=== PATIENT | female | born 1990 | race Caucasian/White ===

== ENCOUNTER 2019-04-25 18:44 | Emergency (ER) | payer SELFPAY ==
--- NOTE | 2019-04-25 20:30 | ER ---
Nurse's Notes [facility] Name: Moises High Age: 28 yrs Sex: Female : 1990 Arrival Date: 04/25/2019 Time: 18:49 Bed 12 Private MD: Diagnosis: Other internal derangements of knee Presentation: 04/25 18:59 Presenting complaint: Patient states: HYPEREXTENDED R KNEE ON 04/20. Transition of care: bp patient was not received from another setting of care. Onset of symptoms was April 20, 2019. Risk Assessment: Do you want to hurt yourself or someone else? Patient reports no desire to harm self or others. Initial Sepsis Screen: Does the patient meet any 2 criteria? No. Patient's initial sepsis screen is negative. Does the patient have a suspected source of infection? No. Patient's initial sepsis screen is negative. Care prior to arrival: None. 18:59 Method Of Arrival: Ambulatory bp 18:59 Acuity: YOLY 3 bp Triage Assessment: 19:37 General: Appears in no apparent distress. Behavior is calm, cooperative. 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 - Social history:: Smoking status: Patient/guardian denies using tobacco. - Ebola Screening: : No symptoms or risks identified at this time. Screenin:37 Abuse screen: Denies threats or abuse. Denies injuries from another. Nutritional ak1 screening: No deficits noted. Tuberculosis screening: No symptoms or risk factors identified. Fall Risk None identified. Assessment: 20:38 Reassessment: Patient appears in no apparent distress at this time. Patient and/or ak1 family updated on plan of care and expected duration. Pain level reassessed. Patient is alert, oriented x 3, equal unlabored respirations, skin warm/dry/pink. General: Appears in no apparent distress. Pain: Complains of pain in knee. Neuro: No deficits noted. Cardiovascular: No deficits noted. Respiratory: No deficits noted. GI: No signs and/or symptoms were reported involving the gastrointestinal system. : No signs and/or symptoms were reported regarding the genitourinary system. EENT: No signs and/or symptoms were reported regarding the EENT system. Derm: Reports pain since pain in right knee since 04/20/19. Musculoskeletal: Reports pt with brace to right knee 04/20/19, pt with limping gait due to pain. Vital Signs: 19:01 BP 129 / 76; Pulse 93; Resp 18; Temp 97.4; Pulse Ox 97% ; Weight 133.81 kg; Height 5 bp ft. 4 in. (162.56 cm); 19:01 Body Mass Index 50.64 (133.81 kg, 162.56 cm) bp ED Course: 18:49 Patient arrived in ED. mr 19:00 Triage completed. bp 19:01 Arm band placed on left wrist. bp 19:37 Patient has correct armband on for positive identification. ak1 19:56 Vineet Sanchez MD is Attending Physician. gs 20:14 Lucille Dale RN is Primary Nurse. ak1 20:28 Ulises Garcia MD is Referral Physician. gs 20:38 No provider procedures requiring assistance completed. Patient did not have IV access ak1 during this emergency room visit. Administered Medications: No medications were administered Outcome: 20:29 Discharge ordered by . gs 20:38 Instructed on ak1 20:52 Discharged to home ambulatory, with family. ak1 20:52 Condition: good 20:52 Patient left the ED. ak1 Signatures: Corrina Santoyo Lucille Dale, RN RN ak1 Vineet Sanchez MD MD gs Peltier, Brian, RN RN bp
--- NOTE | 2019-04-25 20:30 | EDPHYS ---
Physician Documentation [facility] Name: Moises High Age: 28 yrs Sex: Female : 1990 Arrival Date: 04/25/2019 Time: 18:49 Bed 12 Private MD: ED Physician Vineet Sanchez HPI: 04/25 21:26 This 28 yrs old Female presents to ER via Ambulatory with complaints of Knee gs Pain. 21:26 The complaints affect the right knee. Onset: The symptoms/episode began/occurred 1 gs week(s) ago. Modifying factors: the symptoms are aggravated by weight bearing, bending knee. Associated signs and symptoms: Pertinent negatives numbness. Severity of symptoms: At their worst the symptoms were moderate, in the emergency department the symptoms are unchanged. The patient has not experienced similar symptoms in the past. The patient has not recently seen a physician. 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 - Social history:: Smoking status: Patient/guardian denies using tobacco. - Ebola Screening: : No symptoms or risks identified at this time. ROS: 21:26 All other systems are negative. gs Exam: 21:26 Eyes: Pupils equal round and reactive to light, extra-ocular motions intact. Lids and gs lashes normal. Conjunctiva and sclera are non-icteric and not injected. Cornea within normal limits. Periorbital areas with no swelling, redness, or edema. Neck: Trachea midline, no thyromegaly or masses palpated, and no cervical lymphadenopathy. Supple, full range of motion without nuchal rigidity, or vertebral point tenderness. No Meningismus. Cardiovascular: Regular rate and rhythm with a normal S1 and S2. No gallops, murmurs, or rubs. Normal PMI, no JVD. No pulse deficits. Abdomen/GI: Soft, non-tender, with normal bowel sounds. No distension or tympany. No guarding or rebound. No evidence of tenderness throughout. Skin: Warm, dry with normal turgor. Normal color with no rashes, no lesions, and no evidence of cellulitis. Neuro: Awake and alert, GCS 15, oriented to person, place, time, and situation. Cranial nerves II-XII grossly intact. Motor strength 5/5 in all extremities. Sensory grossly intact. Cerebellar exam normal. Normal gait. 21:26 Constitutional: The patient appears alert, awake. 21:26 Musculoskeletal/extremity: ROM: limited active range of motion due to pain, limited passive range of motion due to pain, Pulses: are normal with no appreciated deficits, Sensation intact. Joints: effusion, ABSENT. Vital Signs: 19:01 BP 129 / 76; Pulse 93; Resp 18; Temp 97.4; Pulse Ox 97% ; Weight 133.81 kg; Height 5 bp ft. 4 in. (162.56 cm); 19:01 Body Mass Index 50.64 (133.81 kg, 162.56 cm) bp MDM: 20:14 Patient medically screened. 21:26 Data reviewed: vital signs, nurses notes. Counseling: I had a detailed discussion with the patient and/or guardian regarding: the need for outpatient follow up, a orthopedic surgeon. Administered Medications: No medications were administered Disposition: 04/25/19 20:29 Discharged to Home. Impression: Other internal derangements of knee. - Condition is Stable. - Discharge Instructions: Combined Knee Ligament Sprain. - Work release form, Medication Reconciliation Form, Thank You Letter, Antibiotic Education, Prescription Opioid Use form. - Follow up: Ulises Garcia MD; When: 2 - 3 days; Reason: Re-evaluation by your physician. Signatures: Lucille Dale RN RN ak1 Vineet Sanchez MD MD Antonio Gamboa RN RN bp Corrections: (The following items were deleted from the chart) 20:52 20:29 04/25/2019 20:29 Discharged to Home. Impression: Other internal derangements of ak1 knee. Condition is Stable. Forms are Medication Reconciliation Form, Thank You Letter, Antibiotic Education, Prescription Opioid Use. Follow up: Ulises Garcia; When: 2 - 3 days; Reason: Re-evaluation by your physician.
== END 2019-04-25 20:52 | disposition home or self-care (01) ==
LOC: ER 18:44
DX: M23.8X1 Other internal derangements of right knee (principal)
CPT/HCPCS: 99281

== ENCOUNTER 2019-09-02 19:09 | Emergency (ER) | payer SELFPAY ==
--- OUTSIDE RECORDS SUMMARY | 2019-09-02 19:12 | XMS REPORT ---
:1990 Author Organization [facility] Address [address] [place] [address] Dr. Barger [address] [place] [id number] Care Team Providers Name Role Phone Unavailable Unavailable Unavailable Problems This patient has no known problems. Allergies, Adverse Reactions, Alerts This patient has no known allergies or adverse reactions. Medications This patient has no known medications.
[2019-09-02] MEDS ORDERED: LEVALBUTEROL 1.25 MG/3 ML NEB ONE (19:34)
[2019-09-02] MEDS ORDERED: METHYLPREDNISOLONE 125 MG INJ ONE (19:34)
[2019-09-02] MEDS ORDERED: HYDROCODONE/CHLORPHEN 5 ML/OSYR ONE (19:35)
--- NOTE | 2019-09-02 20:02 | RAD REPORT ---
EXAM DESCRIPTION: RAD - Chest Pa And Lat (2 Views) - 09/02/2019 7:49 pm CLINICAL HISTORY: COUGH Chest pain. COMPARISON: <Comparisons> FINDINGS: Mild interstitial prominence is seen which may represent bronchitis or reactive airway dis ease. No focal consolidation typical of pneumonia evident. The heart is normal in size. No displaced fractures.
--- NOTE | 2019-09-02 20:16 | EDPHYS ---
Physician Documentation [facility] Name: Moises High Age: 29 yrs Sex: Female : 1990 Arrival Date: 09/02/2019 Time: 19:14 Bed 20 Private MD: ED Physician Teddy Mcgrath HPI: 09/02 19:28 This 29 yrs old Female presents to ER via Ambulatory with complaints of rn Wheezing < 1 Year, Cough, Fever, Nasal Congestion, Eye Problem, Ear Pain. 19:28 The patient or guardian reports cough, described as moderate, with productive sputum. rn Onset: The symptoms/episode began/occurred 1.5 week(s) ago. Severity of symptoms: At their worst the symptoms were moderate, in the emergency department the symptoms are unchanged. Modifying factors: The symptoms are alleviated by nothing, the symptoms are aggravated by nothing. Associated signs and symptoms: Pertinent positives: rhinorrhea, sore throat, Pertinent negatives: diarrhea, fever. The patient has experienced similar episodes in the past. Reports 1.5 weeks of cough, congestion, not getting better despite amoxicilin, cough medication, allergy meds. + asthma. NO hemoptysis. . 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 - Social history:: Smoking status: Patient uses tobacco products, 4-5 cigarettes per day. - Ebola Screening: : Patient denies travel to an Ebola-affected area in the 21 days before illness onset. - Family history:: not pertinent. - Hospitalizations: : No recent hospitalization is reported. ROS: 19:28 Constitutional: Negative for fever, chills, and weight loss, Eyes: Negative for injury, rn pain, redness, and discharge, ENT: + nasal congestion and sore throat Neck: Negative for injury, pain, and swelling, Cardiovascular: Negative for chest pain, palpitations, and edema, Respiratory: + sob and cough Abdomen/GI: Negative for abdominal pain, nausea, vomiting, diarrhea, and constipation, MS/Extremity: Negative for injury and deformity, Skin: Negative for injury, rash, and discoloration, Neuro: Negative for numbness, tingling, and seizure. Exam: 19:28 Constitutional: This is a well developed, well nourished patient who is awake, alert, rn + persistent cough Head/Face: Normocephalic, atraumatic. Eyes: Pupils equal round and reactive to light, extra-ocular motions intact. Lids and lashes normal. Conjunctiva and sclera are non-icteric and not injected. Cornea within normal limits. Periorbital areas with no swelling, redness, or edema. ENT: MMM, no oral swelling, no stridor, uvula midline Neck: Trachea midline, no crepitus, + non-tender cervical LAD Cardiovascular: Regular rate and rhythm. No pulse deficits. Respiratory: + mild tachypnea with coarse bilateral breath sounds, + faint wheezing bilaterally. Abdomen/GI: soft, non-tender Skin: Warm, dry with normal turgor. Normal color with no rashes, no lesions, and no evidence of cellulitis. MS/ Extremity: Pulses equal, no cyanosis. Neurovascular intact. Full, normal range of motion. Equal circumference. Neuro: Awake and alert, GCS 15 Vital Signs: 19:18 BP 137 / 94; Pulse 93; Resp 20; Temp 98.7; Pulse Ox 100% on R/A; Weight 133.81 kg (R); aj1 Height 5 ft. 4 in. (162.56 cm) (R); Pain 8/10; 20:30 BP 107 / 68; Pulse 89; Resp 19 S; Pulse Ox 100% on R/A; cc3 19:18 Body Mass Index 50.64 (133.81 kg, 162.56 cm) aj1 MDM: 19:20 Patient medically screened. rn 20:14 Differential Diagnosis: Bronchitis Influenza Upper Respiratory Infection Sinusitis rn Pharyngitis Viral Syndrome Pneumonia. Data reviewed: vital signs, nurses notes, lab test result(s), radiologic studies, plain films, and as a result, I will discharge patient. Test interpretation: by ED physician or midlevel provider: plain radiologic studies, CXR without focal pneumonia. Counseling: I had a detailed discussion with the patient and/or guardian regarding: the historical points, exam findings, and any diagnostic results supporting the discharge/admit diagnosis, radiology results, the need for outpatient follow up, to return to the emergency department if symptoms worsen or persist or if there are any questions or concerns that arise at home. Response to treatment: the patient's symptoms have markedly improved after treatment, and as a result, I will discharge patient. Special discussion: I discussed with the patient/guardian in detail that at this point there is no indication for admission to the hospital. It is understood, however, that if the symptoms persist or worsen the patient needs to return immediately for re-evaluation. ED course: Pt improved, interstitial prominence on CXR, given length of symptoms, will treat with steroids and abx. . 09/02 19:27 Order name: Flu; Complete Time: 20:13 rn 09/02 19:27 Order name: Strep; Complete Time: 20:13 rn 09/02 19:27 Order name: XRAY Chest Pa And Lat (2 Views); Complete Time: 20:13 rn 09/02 20:04 Order name: Throat Culture EDMS Administered Medications: 19:30 Drug: Tussionex Pennkinetic ER 5 ml Route: PO; cc3 20:40 Follow up: Response: No adverse reaction cc3 19:35 Drug: SOLU-Medrol 125 mg Route: IM; Site: left gluteus; cc3 20:40 Follow up: Response: No adverse reaction cc3 19:36 Drug: Xopenex (3) 1.25 mg Route: Inhalation; cc3 20:40 Follow up: Response: No adverse reaction cc3 20:30 Drug: Zithromax 500 mg Route: PO; cc3 20:40 Follow up: Response: No adverse reaction cc3 Disposition: 09/02/19 20:16 Discharged to Home. Impression: Bronchitis, not specified as acute or chronic. - Condition is Stable. - Discharge Instructions: Acute Bronchitis, Adult. - Prescriptions for Prednisone 20 mg Oral Tablet - take 3 tablet by ORAL route once daily for 5 days; 15 tablet. Zithromax Z- Dewayne 250 mg Oral Tablet - take 1 tablet by ORAL route as directed for 5 days Day 1 - take two (2) tablets one time. Day 2, 3, 4 , 5 take one (1) tablet once daily.; 6 tablet. Albuterol Sulfate 90 mcg/actuation - inhale 1-2 puff by INHALATION route every 4-6 hours; 1 Inhaler. Guaifenesin AC 10- 100 mg/5 mL Oral Liquid - take 10 milliliter by ORAL route every 4 hours As needed; 240 milliliter. - Medication Reconciliation Form, Thank You Letter, Antibiotic Education, Prescription Opioid Use, Work release form form. - Follow up: Private Physician; When: As needed; Reason: Recheck today's complaints, Re-evaluation by your physician. - Problem is an ongoing problem. - Symptoms have improved. Signatures: Dispatcher [employer] EDCierra Campos RN RN aj1 Teddy Mcgrath MD MD rn Cordel, Charlene cc3 Corrections: (The following items were deleted from the chart) 20:40 20:16 09/02/2019 20:16 Discharged to Home. Impression: Bronchitis, not specified as cc3 acute or chronic. Condition is Stable. Forms are Medication Reconciliation Form, Thank You Letter, Antibiotic Education, Prescription Opioid Use. Follow up: Private Physician; When: As needed; Reason: Recheck today's complaints, Re-evaluation by your physician. Problem is an ongoing problem. Symptoms have improved. rn
--- NOTE | 2019-09-02 20:16 | ER ---
Nurse's Notes [facility] Name: Moises High Age: 29 yrs Sex: Female : 1990 Arrival Date: 09/02/2019 Time: 19:14 Bed 20 Private MD: Diagnosis: Bronchitis, not specified as acute or chronic Presentation: 09/02 19:15 Presenting complaint: Patient states: "I've been sick for a week and a half. I hear aj1 like fluid in my lungs when I breathe, I try to cough it up but Im not coughing up enough. I've been self-medication with antibiotics, Benadryl and Robitussin DM. I have a nebulizer I've been using" Denies fever. Transition of care: patient was not received from another setting of care. Onset of symptoms was 2018. Risk Assessment: Do you want to hurt yourself or someone else? Patient reports no desire to harm self or others. Initial Sepsis Screen: Does the patient meet any 2 criteria? HR > 90 bpm. No. Patient's initial sepsis screen is negative. Does the patient have a suspected source of infection? Yes: Productive cough/pneumonia. Care prior to arrival: None. 19:15 Method Of Arrival: Ambulatory aj1 19:15 Acuity: YOLY 3 aj1 Triage Assessment: 19:18 General: Appears in no apparent distress. comfortable, Behavior is calm, cooperative, aj1 appropriate for age. Pain: Pain currently is 8 out of 10 on a pain scale. Neuro: Level of Consciousness is awake, alert, obeys commands. Cardiovascular: Patient's skin is warm and dry. Respiratory: Airway is patent Respiratory effort is even, unlabored, Respiratory pattern is regular, symmetrical. 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 - Social history:: Smoking status: Patient uses tobacco products, 4-5 cigarettes per day. - Ebola Screening: : Patient denies travel to an Ebola-affected area in the 21 days before illness onset. - Family history:: not pertinent. - Hospitalizations: : No recent hospitalization is reported. Screenin:27 Abuse screen: Denies threats or abuse. Denies injuries from another. Nutritional cc3 screening: No deficits noted. Tuberculosis screening: No symptoms or risk factors identified. Fall Risk Ambulatory Aid- None/Bed Rest/Nurse Assist (0 pts). Gait- Normal/Bed Rest/Wheelchair (0 pts) Mental Status- Oriented to own ability (0 pts). Assessment: 19:27 General: Appears in no apparent distress. uncomfortable, Behavior is calm, cooperative, cc3 appropriate for age. Pain: Denies pain. Neuro: Level of Consciousness is awake, alert, obeys commands, Oriented to person, place, time, situation, Appropriate for age. Cardiovascular: Denies chest pain, Heart tones S1 S2 present Capillary refill < 3 seconds in bilateral fingers Patient's skin is warm and dry. Respiratory: Airway is patent Respiratory effort is even, unlabored, Respiratory pattern is regular, symmetrical, Breath sounds are coarse bilaterally. Breath sounds with wheezes bilaterally. GI: Abdomen is round obese, Bowel sounds present X 4 quads. : No signs and/or symptoms were reported regarding the genitourinary system. EENT: No signs and/or symptoms were reported regarding the EENT system. Derm: Skin is intact, is healthy with good turgor, Skin is pink, warm \\T\\ dry. normal. Musculoskeletal: Circulation, motion, and sensation intact. Range of motion: intact in all extremities. 20:40 Reassessment: Patient appears in no apparent distress at this time. Patient and/or cc3 family updated on plan of care and expected duration. Pain level reassessed. Patient is alert, oriented x 3, equal unlabored respirations, skin warm/dry/pink. Dr. Mcgrath discharged the patient home with prescriptions given. No IV cannula in situ. Patient left ER vitally stable and ambulatory. No valuables left in the patient's room. Patient denies pain at this time. Patient states feeling better. Patient states symptoms have improved. Vital Signs: 19:18 BP 137 / 94; Pulse 93; Resp 20; Temp 98.7; Pulse Ox 100% on R/A; Weight 133.81 kg (R); aj1 Height 5 ft. 4 in. (162.56 cm) (R); Pain 8/10; 20:30 BP 107 / 68; Pulse 89; Resp 19 S; Pulse Ox 100% on R/A; cc3 19:18 Body Mass Index 50.64 (133.81 kg, 162.56 cm) aj1 ED Course: 19:14 Patient arrived in ED. es 19:17 Triage completed. aj1 19:18 Arm band placed on Patient placed in an exam room. aj1 19:20 Teddy Mcgrath MD is Attending Physician. rn 19:27 Nayeli Morris is Primary Nurse. cc3 19:27 Patient has correct armband on for positive identification. Bed in low position. Call cc3 light in reach. Side rails up X2. Pulse ox on. NIBP on. 19:49 XRAY Chest Pa And Lat (2 Views) In Process Unspecified. EDMS 20:40 No provider procedures requiring assistance completed. Patient did not have IV access cc3 during this emergency room visit. Administered Medications: 19:30 Drug: Tussionex Pennkinetic ER 5 ml Route: PO; cc3 20:40 Follow up: Response: No adverse reaction cc3 19:35 Drug: SOLU-Medrol 125 mg Route: IM; Site: left gluteus; cc3 20:40 Follow up: Response: No adverse reaction cc3 19:36 Drug: Xopenex (3) 1.25 mg Route: Inhalation; cc3 20:40 Follow up: Response: No adverse reaction cc3 20:30 Drug: Zithromax 500 mg Route: PO; cc3 20:40 Follow up: Response: No adverse reaction cc3 Outcome: 20:16 Discharge ordered by . rn 20:40 Patient left the ED. cc3 20:40 Discharged to home ambulatory. cc3 20:40 Condition: stable 20:40 Discharge instructions given to patient, Instructed on discharge instructions, follow up and referral plans. medication usage, Demonstrated understanding of instructions, follow-up care, medications, Prescriptions given X 4. Signatures: Dispatcher [employer] EDND Cierra Taylor RN RN aj Aleja Arevalo Roman, MD MD rn Cordel, Charlene cc3 Corrections: (The following items were deleted from the chart) 21:40 19:27 Respiratory: Airway is patent Respiratory effort is even, unlabored, Respiratory cc3 pattern is regular, symmetrical, cc3
[2019-09-02] MEDS ORDERED: AZITHROMYCIN 250 MG TAB ONE (20:22)
[2019-09-02 21:51] VITALS: BP 137/94; TEMP 98.7; O2SAT 100
== END 2019-09-02 20:40 | disposition home or self-care (01) ==
LOC: ER 19:09
DX: J40 Bronchitis, not specified as acute or chronic (principal); F17.210 Nicotine dependence, cigarettes, uncomplicated
CPT/HCPCS: 71046; 87070; 87081; 87804; 96372; 99284; J2930

== ENCOUNTER 2019-09-23 13:21 | Emergency (ER) | payer SELFPAY ==
--- OUTSIDE RECORDS SUMMARY | 2019-09-23 13:23 | XMS REPORT ---
:1990 [facility] Address [address] [place] [address] Dr. López. [address] [place] [id number] Care Team Providers Name Role Phone Unavailable Unavailable Unavailable Problems This patient has no known problems. Allergies, Adverse Reactions, Alerts This patient has no known allergies or adverse reactions. Medications This patient has no known medications.
[2019-09-23] MEDS ORDERED: LEVALBUTEROL 1.25 MG/3 ML NEB ONE (14:15)
[2019-09-23] MEDS ORDERED: dexAMETHasone 10 MG/ML VIAL ONE (14:15)
--- NOTE | 2019-09-23 15:06 | RAD REPORT ---
EXAM DESCRIPTION: Marycruz Delacruz (2 Views)09/23/2019 2:37 pm CLINICAL HISTORY: Cough COMPARISON: 08/2019 FINDINGS: The lungs appear clear of acute infiltrate. The heart is normal size IMPRESSION: No acute abnormalities displayed
[2019-09-23] MEDS ORDERED: MECLIZINE HCL 12.5 MG TAB ONE (15:10)
--- NOTE | 2019-09-23 16:08 | EDPHYS ---
Physician Documentation [facility] Name: Moises High Age: 29 yrs Sex: Female : 1990 Arrival Date: 09/23/2019 Time: 13:23 Bed 19 Private MD: ED Physician Sam Whitfield HPI: 09/23 14:23 This 29 yrs old Female presents to ER via Ambulatory with complaints of pm1 Cough, Congestion, Dizziness, Shortness Of Breath, Ear Pain. 14:23 The patient or guardian reports cough, with productive sputum. Onset: The pm1 symptoms/episode began/occurred 3 day(s) ago. Severity of symptoms: in the emergency department the symptoms are actually worse. Modifying factors: The symptoms are alleviated by nothing, the symptoms are aggravated by nothing. Associated signs and symptoms: Pertinent positives: bilateral ear pain, dizziness, shortness of breath, Pertinent negatives: chest pain, diarrhea, fever, sore throat, vomiting. The patient has not experienced similar symptoms in the past. The patient has been recently seen at the [facility] Emergency Department, for similar complaints about two weeks ago. Improved and resoled for a few days but similar symptoms returned. Dizziness with changing position. Historical: - Allergies: 13:52 No Known Allergies; ph - Home Meds: 13:52 Albuterol Inhl [Active]; ph - PMHx: 13:52 Asthma; ph - PSHx: 13:52 Adenoids; Tonsillectomy; ph ROS: 14:23 Constitutional: Negative for fever, chills, and weight loss, Eyes: Negative for injury, pm1 pain, redness, and discharge, Neck: Negative for injury, pain, and swelling, Cardiovascular: Negative for chest pain, palpitations, and edema. 14:23 Abdomen/GI: Negative for abdominal pain, nausea, vomiting, diarrhea, and constipation, Back: Negative for injury and pain, : Negative for injury, bleeding, discharge, and swelling, MS/Extremity: Negative for injury and deformity, Skin: Negative for injury, rash, and discoloration. 14:23 ENT: Positive for ear pain, sinus congestion, sinus pain, Negative for drainage from ear(s), sore throat, difficulty swallowing, difficulty handling secretions, hoarseness. 14:23 Respiratory: Positive for cough, wheezing, Negative for shortness of breath. 14:23 Neuro: Positive for dizziness, Negative for numbness, tingling. Exam: 14:23 Constitutional: This is a well developed, well nourished patient who is awake, alert, pm1 and in no acute distress. Head/Face: Normocephalic, atraumatic. Eyes: Pupils equal round and reactive to light, extra-ocular motions intact. Lids and lashes normal. Conjunctiva and sclera are non-icteric and not injected. Cornea within normal limits. Periorbital areas with no swelling, redness, or edema. Neck: Trachea midline, no thyromegaly or masses palpated, and no cervical lymphadenopathy. Supple, full range of motion without nuchal rigidity, or vertebral point tenderness. No Meningismus. Chest/axilla: Normal chest wall appearance and motion. Nontender with no deformity. No lesions are appreciated. Cardiovascular: Regular rate and rhythm with a normal S1 and S2. No gallops, murmurs, or rubs. Normal PMI, no JVD. No pulse deficits. 14:23 Abdomen/GI: Soft, non-tender, with normal bowel sounds. No distension or tympany. No guarding or rebound. No evidence of tenderness throughout. Back: No spinal tenderness. No costovertebral tenderness. Full range of motion. Skin: Warm, dry with normal turgor. Normal color with no rashes, no lesions, and no evidence of cellulitis. MS/ Extremity: Pulses equal, no cyanosis. Neurovascular intact. Full, normal range of motion. 14:23 ENT: External ear(s): are unremarkable, Ear canal(s): are normal, TM's: bulging, bilaterally, erythema, is not appreciated, rupture, is not appreciated. 14:23 Respiratory: the patient does not display signs of respiratory distress, Respirations: normal, Breath sounds: wheezing: expiratory is heard diffusely. Vital Signs: 13:52 BP 131 / 71; Pulse 99; Resp 20; Temp 98.4; Pulse Ox 96% on R/A; Weight 131.54 kg; ph Height 5 ft. 4 in. (162.56 cm); 15:30 BP 117 / 68; Pulse 97; Resp 22; Pulse Ox 97% on R/A; Pain 2/10; em 13:52 Body Mass Index 49.78 (131.54 kg, 162.56 cm) ph MDM: 14:09 Patient medically screened. pm1 16:06 Data reviewed: vital signs. Data interpreted: Pulse oximetry: on room air is 97 %. pm1 Interpretation: normal. Counseling: I had a detailed discussion with the patient and/or guardian regarding: the historical points, exam findings, and any diagnostic results supporting the discharge/admit diagnosis, lab results, radiology results, the need for outpatient follow up, to return to the emergency department if symptoms worsen or persist or if there are any questions or concerns that arise at home. 09/23 14:12 Order name: Flu; Complete Time: 15:19 pm1 09/23 14:12 Order name: Chest Pa And Lat (2 Views) XRAY; Complete Time: 15:10 pm1 Administered Medications: 14:20 Drug: Xopenex (3) 1.25 mg Route: Inhalation; em 15:59 Follow up: Response: No adverse reaction em 14:20 Drug: Decadron 10 mg {Note: given PO per provider instructions .} Route: IM; Site: em Other; 15:59 Follow up: Response: No adverse reaction em 15:13 Drug: Meclizine 50 mg Route: PO; em 16:00 Follow up: Response: No adverse reaction; Marked relief of symptoms em Disposition: 09/24 07:22 Co-signature as Attending Physician, Sam Whitfield MD I agree with the assessment and kdr plan of care. Disposition: 09/23/19 16:07 Discharged to Home. Impression: Acute upper respiratory infection, unspecified, Otalgia, Benign paroxysmal vertigo. - Condition is Stable. - Discharge Instructions: Benign Positional Vertigo, Upper Respiratory Infection, Adult, Viral Respiratory Infection. - Prescriptions for Meclizine 25 mg Oral Tablet - take 1 tablet by ORAL route every 8 hours As needed; 30 tablet. Guaifenesin AC 10- 100 mg/5 mL Oral Liquid - take 10 milliliter by ORAL route every 4 hours As needed; 240 milliliter. Medrol (D[place]ayne) 4 mg Oral Tablets, Dose Pack - take 1 tablet by ORAL route as directed - follow package instructions; 1 packet. Albuterol Sulfate 90 mcg/actuation - inhale 1-2 puff by INHALATION route every 4-6 hours; 1 Inhaler. Claritin- D 12 Hour 5-120 mg Oral Tablet Sustained Release 12 hr - take 1 tablet by ORAL route every 12 hours As needed; 30 tablet. - Work release form, Medication Reconciliation Form, Thank You Letter, Antibiotic Education, Prescription Opioid Use form. - Follow up: Emergency Department; When: As needed; Reason: Worsening of condition. Follow up: Private Physician; When: 2 - 3 days; Reason: Recheck today's complaints, Continuance of care, Re-evaluation by your physician. - Problem is new. - Symptoms have improved. Signatures: Dispatcher [employer] EDMS Sam Whitfield MD MD [facility] Raymundo Hale, RESIDENTIAL REMODELING SUBCONTRACTOR RESIDENTIAL REMODELING SUBCONTRACTOR em Jessica Varela RN RN ph Mark Nunez, HYPOID GEAR GENERATOR HYPOID GEAR GENERATOR pm1 Corrections: (The following items were deleted from the chart) 09/23 16:35 16:07 09/23/2019 16:07 Discharged to Home. Impression: Acute upper respiratory em infection, unspecified; Otalgia; Benign paroxysmal vertigo. Condition is Stable. Forms are Medication Reconciliation Form, Thank You Letter, Antibiotic Education, Prescription Opioid Use. Follow up: Emergency Department; When: As needed; Reason: Worsening of condition. Follow up: Private Physician; When: 2 - 3 days; Reason: Recheck today's complaints, Continuance of care, Re-evaluation by your physician. Problem is new. Symptoms have improved. pm1
--- NOTE | 2019-09-23 16:08 | ER ---
Nurse's Notes [facility] Name: Moises High Age: 29 yrs Sex: Female : 1990 Arrival Date: 09/23/2019 Time: 13:23 Bed 19 Private MD: Diagnosis: Acute upper respiratory infection, unspecified;Otalgia;Benign paroxysmal vertigo Presentation: 09/23 13:50 Presenting complaint: Patient states: Cough, congestion, ear pain ,and dizziness x 3 ph days, denies fever/chills. Transition of care: patient was not received from another setting of care. Onset of symptoms was September 23, 2019. Risk Assessment: Do you want to hurt yourself or someone else? Patient reports no desire to harm self or others. Initial Sepsis Screen: Does the patient meet any 2 criteria? No. Patient's initial sepsis screen is negative. Does the patient have a suspected source of infection? No. Patient's initial sepsis screen is negative. Care prior to arrival: None. 13:50 Method Of Arrival: Ambulatory ph 13:50 Acuity: YOLY 4 ph Historical: - Allergies: 13:52 No Known Allergies; ph - Home Meds: 13:52 Albuterol Inhl [Active]; ph - PMHx: 13:52 Asthma; ph - PSHx: 13:52 Adenoids; Tonsillectomy; ph Screenin:23 Abuse screen: Denies threats or abuse. Nutritional screening: No deficits noted. em Tuberculosis screening: No symptoms or risk factors identified. Fall Risk None identified. Assessment: 14:14 General: Appears in no apparent distress. comfortable, Behavior is calm, cooperative, em Denies fever. Pain: Complains of pain in chest Pain currently is 2 out of 10 on a pain scale. Quality of pain is described as "tightness". Neuro: Level of Consciousness is awake, alert, obeys commands, Oriented to person, place, time, situation, Appropriate for age Reports dizziness. Cardiovascular: Capillary refill < 3 seconds Patient's skin is warm and dry. Respiratory: Airway is patent Respiratory effort is even, unlabored, Respiratory pattern is regular, symmetrical, Breath sounds with wheezes bilaterally. EENT: Nares are clear Oral mucosa is moist. Derm: Skin is intact, is healthy with good turgor, Skin is pink, warm \\T\\ dry. Musculoskeletal: Capillary refill < 3 seconds, Range of motion: intact in all extremities. 15:05 Reassessment: reports dizziness after sitting up and attempting to ambulate to em restroom, provider notified, new medication orders received. 15:55 Reassessment: Patient appears in no apparent distress at this time. Patient and/or em family updated on plan of care and expected duration. Pain level reassessed. Patient is alert, oriented x 3, equal unlabored respirations, skin warm/dry/pink. dizziness has improved, pt ambulating with steady gait. Vital Signs: 13:52 BP 131 / 71; Pulse 99; Resp 20; Temp 98.4; Pulse Ox 96% on R/A; Weight 131.54 kg; ph Height 5 ft. 4 in. (162.56 cm); 15:30 BP 117 / 68; Pulse 97; Resp 22; Pulse Ox 97% on R/A; Pain 2/10; em 13:52 Body Mass Index 49.78 (131.54 kg, 162.56 cm) ph ED Course: 13:23 Patient arrived in ED. mr 13:51 Triage completed. ph 13:54 Mark Nunez NP is PHCP. pm1 13:54 Sam Whitfield MD is Attending Physician. pm1 13:54 Arm band placed on Patient placed. ph 13:58 Raymundo Hale LVN is Primary Nurse. em 14:23 Patient has correct armband on for positive identification. Bed in low position. Call em light in reach. Adult w/ patient. Pulse ox on. NIBP on. 14:36 Chest Pa And Lat (2 Views) XRAY In Process Unspecified. EDMS 16:33 No provider procedures requiring assistance completed. Patient did not have IV access em during this emergency room visit. Administered Medications: 14:20 Drug: Xopenex (3) 1.25 mg Route: Inhalation; em 15:59 Follow up: Response: No adverse reaction em 14:20 Drug: Decadron 10 mg {Note: given PO per provider instructions .} Route: IM; Site: em Other; 15:59 Follow up: Response: No adverse reaction em 15:13 Drug: Meclizine 50 mg Route: PO; em 16:00 Follow up: Response: No adverse reaction; Marked relief of symptoms em Outcome: 16:07 Discharge ordered by . pm1 16:33 Discharged to home ambulatory. em 16:33 Condition: good 16:33 Discharge instructions given to patient, Instructed on discharge instructions, follow up and referral plans. medication usage, Demonstrated understanding of instructions, follow-up care, medications, Prescriptions given X 5 16:35 Patient left the ED. em Signatures: Dispatcher [employer] EDCorrina Garcia Geoffrey, Raymundo, SKI BASE TRIMMER SKI BASE TRIMMER em Jessica Varela RN RN Mark Ratliff, ANALYTICAL CHEMIST ANALYTICAL CHEMIST pm1
[2019-09-23 18:57] VITALS: TEMP 98.4
[2019-09-23 18:59] VITALS: BP 117/68; O2SAT 97
== END 2019-09-23 16:35 | disposition home or self-care (01) ==
LOC: ER 13:21
DX: J06.9 Acute upper respiratory infection, unspecified (principal); H92.03 Otalgia, bilateral; H81.10 Benign paroxysmal vertigo, unspecified ear; J45.909 Unspecified asthma, uncomplicated
CPT/HCPCS: 71046; 87804; 96372; 99284; J1100; J8597